=== PATIENT | male | born 1980 | race Caucasian/White ===

== ENCOUNTER 2019-01-02 03:18 | Inpatient (IN) | payer OTHER ==
[2019-01-02] VITALS (42 sets, daily range): BP systolic 100–191; BP diastolic 61–122; Ht 177.8 cm; Wt 113.2 kg
[~2019-01-02] VITALS: Ht 177.8 cm; Wt 113.2 kg
[2019-01-02] MEDS ORDERED: DILTIAZEM 24HR360 M4 PO (03:24)
[2019-01-02] MEDS ORDERED: POTASSIUM CHLO10 ME1 PO (03:25)
[2019-01-02] MEDS ORDERED: HYDROCHLOROTHIA25 MG PO (03:25)
[2019-01-02] MEDS ORDERED: CATAPRES0.1 MG PO (03:25)
--- NOTE | 2019-01-02 04:38 | NUR ---
PT BACK FROM CT. STATES PAIN IS STARTING TO RETURN. NITRO INCREASED TO 15MCG/MIN. DR LEMON MADE AWARE.
[2019-01-02 04:53] LABS: CALC OSMOLALITY 278 mosm/kg (275-300); CALCIUM 8.8 mg/dL (8.5-10.1); CARBON DIOXIDE 30.9 mmol/L (21.0-32.0); CHLORIDE - SERUM 99 mmol/L (98-107); CKMB 2.3 U/L (0.0-3.6); CREATINE KINASE 587 UL (21-232); CREATININE - SERUM 1.5 mg/dL (0.6-1.3); GLUCOSE 129 mg/dL (74-106); MAGNESIUM - SERUM 1.8 mg/dL (1.8-2.4); SODIUM 138 mmol/L (136-145); TROPONIN-I 0.049 ng/mL (0.000-0.060); UREA NITROGEN 15 mg/dL (7-18); eGFR NON AFRICAN AMERICAN 56 mL/min (90-120)
[2019-01-02 04:58] LABS: POTASSIUM - SERUM 2.6 mmol/L (3.5-5.1)
--- NOTE | 2019-01-02 07:24 | NUR ---
PT RECIEVED TO ROOM WITH ER STAFF, FAMILY IN WAITING ROOM ALERT AND ORIENTED O2 2L NC, RAC AND LFA PIV WITH NITRO AND NS 20KCL INFUSING, SEE ADMISSION ASSESSMENT FOR DETAILS, PAGED DR WATKINS TO NOTIFY OF BP AND PTS ARRIVAL WITH ORDERS RECIEVED FOR PROCARDIA
[2019-01-02 09:06] LABS: BASOPHILS 0.1 % (0-2); EOSINOPHILS 0.3 % (0-7); HEMATOCRIT 44.4 % (42.0-54.0); HEMOGLOBIN 15.8 g/dL (13.5-17.5); IMMATURE GRANULOCYTES 0.2 % (0-5); LYMPHOCYTES 11.3 % (15-50); MCH 30.7 pg (26.0-34.0); MCHC 35.6 g/dL (31.0-37.0); MCV 86.2 fL (80.0-100.0); MEAN PLATELET VOLUME 9.7 fL (7.4-10.4); MONOCYTES 7.1 % (2-11); PLATELET COUNT 326 10x3/uL (130-400); RBC 5.15 10x6/uL (4.20-6.10); RDW 12.9 % (11.5-14.5); WBC 11.9 10x3/uL (4.8-10.8)
[2019-01-02 09:21] LABS: ALBUMIN 3.4 g/dL (3.4-5.0); BILIRUBIN - TOTAL 0.74 mg/dL (0.2-1.3); CALCIUM 7.9 mg/dL (8.5-10.1); CARBON DIOXIDE 30.7 mmol/L (21.0-32.0); CREATININE - SERUM 1.5 mg/dL (0.6-1.3); LDL-HDL RATIO 2.4 ratio (1.5-3.5); MAGNESIUM - SERUM 1.7 mg/dL (1.8-2.4); PROTEIN - SERUM 6.3 g/dL (6.4-8.2)
[2019-01-02 09:29] LABS: CKMB 1.7 U/L (0.0-3.6); CREATINE KINASE 431 UL (21-232); POTASSIUM - SERUM 2.7 mmol/L (3.5-5.1); TROPONIN-I 0.033 ng/mL (0.000-0.060)
--- NOTE | 2019-01-02 09:46 | NUR ---
CALLED DR WATKINS TO CLARIFY NITRO ORDER AND UPDATE ON BP, ORDERS TO CHANGE MAX TO 100MCG, LOPRESSOR AND LISINOPRIL
--- NOTE | 2019-01-02 13:20 | NUR ---
PT AND SPOKEN TO BY DR SALAZAR, PT DENIES ALL QUESTIONS, SEEN BY DR WATKINS, [address] WARNER BP MED ORDERS AND SAID TO HOLD LISINOPRIL UNTIL NEXT DOSE AND OKAYED TO STOP NITRO. 1300 LUNCH TRAY SERVED
[2019-01-02 15:05] LABS: CKMB 1.4 U/L (0.0-3.6); CREATINE KINASE 351 UL (21-232); TROPONIN-I 0.045 ng/mL (0.000-0.060)
[2019-01-02 17:23] LABS: APPEARANCE CLEAR (CLEAR); BILIRUBIN NEGATIVE (NEGATIVE); COLOR YELLOW (YELLOW); GLUCOSE NEGATIVE (NEGATIVE); KETONE NEGATIVE (NEGATIVE); NITRITE NEGATIVE (NEGATIVE); PROTEIN TRACE mg/dL (NEGATIVE); UROBILINOGEN NORMAL (NORMAL)
--- NOTE | 2019-01-02 17:23 | NUR ---
PT DINNER TRAY SERVED, DENIES PAIN AND ALL NEEDS, VSS, AND FAMILY AT BEDSIDE FOR VISITATION, WILL CONTINUE TO MONITOR
[2019-01-02 17:26] LABS: UDS - AMPHET NEGATIVE QUAL (NEGATIVE); UDS - BARB NEGATIVE QUAL (NEGATIVE); UDS - BENZO NEGATIVE QUAL (NEGATIVE); UDS - COCAINE NEGATIVE QUAL (NEGATIVE); UDS - OPIATE POSITIVE QUAL (NEGATIVE); UDS - PCP NEGATIVE QUAL (NEGATIVE); UDS - THC NEGATIVE QUAL (NEGATIVE)
--- NOTE | 2019-01-02 19:00 | NUR ---
BEDSIDE SHIFT REPORT COMPLETED. PT AOX4, VSS, NO COMPLAINTS AT THIS TIME. UNLABORED RESPIRATIONS, LUNG SOUNDS CLEAR. S1S2 HEARD, PERIPHERAL PULSES PRESENT. BOWEL SOUNDS ACTIVE IN ALL QUADRANTS. PT REPOSITIONS SELF INDEPENDENTLY. DENIES NEEDS AT THIS TIME. CALL LIGHT AND BEDSIDE TABLE WITHIN PT REACH. CPOC.
--- NOTE | 2019-01-02 20:00 | NUR ---
FRESH WATER TO BEDSIDE, HS MEDS GIVEN. REPOSITIONS SELF INDEPENDENTLY. FAMILY AT BEDSIDE, UPDATE PROVIDED AND QUESTIONS ANSWERED. PT/FAMILY DENY ANY NEEDS AT THIS TIME. CALL LIGHT WITHIN PT REACH. CPOC.
--- NOTE | 2019-01-02 22:15 | NUR ---
UP TO BATHROOM WITH MINIMAL ASSISTANCE, STEADY GAIT. VSS.
--- NOTE | 2019-01-02 23:00 | NUR ---
REASSESSMENT COMPLETE, NO NEW CHANGES AT THIS TIME. PT REPOSITIONS SELF, VSS, NO C/O PAIN AT THIS TIME. CALL LIGHT WITHIN PT REACH. CPOC.
[2019-01-03] VITALS (14 sets, daily range): BP systolic 117–144; BP diastolic 74–102
--- NOTE | 2019-01-03 01:25 | NUR ---
PT C/O CHEST PAIN 08/08. REQUESTING MORPHINE. VSS, NO OTHER CHANGES AT THIS TIME. PRN MORPHINE GIVEN, DENIES FURTHER NEEDS. CALL LIGHT WITHIN PT REACH. CPOC.
--- NOTE | 2019-01-03 03:00 | NUR ---
REASSESSMENT COMPLETE, NO NEW CHANGES AT THIS TIME. VSS, NO C/O PAIN AT THIS TIME. DENIES NEEDS. CALL LIGHT AND BEDSIDE TABLE WITHIN PT REACH. CPOC.
--- NOTE | 2019-01-03 04:50 | NUR ---
PT RESTING QUIETLY WITH VSS, UNLABORED RESPIRATIONS. NO S/S OF PAIN OR ACUTE DISTRESS. CALL LIGHT WITHIN PT REACH. CPOC.
[2019-01-03 05:08] LABS: BASOPHILS 0.1 % (0-2); EOSINOPHILS 1.5 % (0-7); HEMATOCRIT 45.7 % (42.0-54.0); HEMOGLOBIN 15.6 g/dL (13.5-17.5); IMMATURE GRANULOCYTES 0.2 % (0-5); LYMPHOCYTES 23.4 % (15-50); MCH 30.4 pg (26.0-34.0); MCHC 34.1 g/dL (31.0-37.0); MEAN PLATELET VOLUME 10.2 fL (7.4-10.4); MONOCYTES 10.2 % (2-11); NEUTROPHILS 64.6 % (40-80); PLATELET COUNT 329 10x3/uL (130-400); RBC 5.13 10x6/uL (4.20-6.10); RDW 13.4 % (11.5-14.5); WBC 9.3 10x3/uL (4.8-10.8)
[2019-01-03 05:22] LABS: MCV 89.1 fL (80.0-100.0)
[2019-01-03 05:26] LABS: ANION GAP 9.2 mmol/L (8-16); CALCIUM 7.7 mg/dL (8.5-10.1); CARBON DIOXIDE 26.7 mmol/L (21.0-32.0); CREATININE - SERUM 1.3 mg/dL (0.6-1.3); POTASSIUM - SERUM 3.9 mmol/L (3.5-5.1)
--- NOTE | 2019-01-03 06:22 | NUR ---
CHG BATH AND TOTAL LINEN CHANGE COMPLETED. PT INDEPENDENTLY COMPLETES ORAL CARE. VSS, DENIES FURTHER NEEDS. CALL LIGHT WITHIN PT REACH. CPOC.
--- NOTE | 2019-01-03 07:24 | NUR ---
REPORT RECEVIED FROM THE OFF GOING RN. SEE ASSESSMENT IN THE PTS FLOW SHEET. VSS. PT DENIES PAIN. BREAKFAST TRAY PROVIDED FOR THE PT. PT REQUESTED A DR BE WITH MEAL. KITCHEN NOTIFIED. CALL LIGHT IN REACH. WILL CONT POC.
--- NOTE | 2019-01-03 09:24 | NUR ---
DR HIGGINS AT THE PTS BEDSIDE.
[2019-01-03] MEDS ORDERED: NICODERM C1 PATCH .1 TRANSDERM (11:55)
[2019-01-03] MEDS ORDERED: LISINOPRIL40 MG PO (11:55)
[2019-01-03] MEDS ORDERED: METOPROLOL TART50 MG PO (11:56)
--- NOTE | 2019-01-03 13:09 | NUR ---
DISCHARGE ORDERS RECEIVED. IV DC'D WITH THE CATHETER TIP INTACT.
--- NOTE | 2019-01-03 13:48 | NUR ---
DISCHARGE INSTRUCTIONS WENT OVER WITH THE PT. NO QUESTIONS AT THIS TIME. F/U APPOINTMENT MADE WITH PCP. ALL BELONGINGS ACCOUNTED FOR. PT LEFT WITH HIS FAMILY IN A STABLE CONDITION.
--- NOTE | 2019-01-03 15:37 | MORECARE ---
CASE MANAGEMENT DISCHARGE SUMMARY PATIENT: ELBA LENNON UNIT: [id number] ADM DATE: 01/02/19 AGE: 38 : [birth year] SEX: M ROOM/BED: D.[facility] AUTHOR: CAROLANN KELLY PHYSICIAN: REFERRING PHYSICIAN: JESSIE HIGGINS MD DATE OF SERVICE: 01/03/19 Discharge Plan Patient Name: ELBA LENNON [facility] [facility] 1980 Planned Disposition: Home Anticipated Discharge Date: Discharge Date: 01/03/2019 Expected LOS: Initial Reviewer: [email or web address] Initial Review Date: 01/03/2019 Generated: 01/03/19 4:36 pm DCPIA - Discharge Planning Initial Assessment Updated by [email or web address]: Lisa Romano on 01/03/19 3:36 pm * How many steps to enter\exit or inside your home? * PCP DR. Torre * Pharmacy [facility] * Preadmission Environment Home with Family * ADLs Independent * List name and contact numbers for known caregivers / representatives who currently or will assist patient after discharge: MATEUS LENNON -SPOUSE- [phone] * Verbal permission to speak to the caregivers and representatives has been obtained from the patient. No * Community resources currently utilized None * Additional services required to return to the preadmission environment? No * Can the patient safely return to the preadmission environment? Yes * Has this patient been hospitalized within the prior 30 days at any hospital? No Patient Name: ELBA LENNON Page [id number] at 1537 All edits/amendments must be made on the electronic document DICTATION DATE: 01/03/19 1536 CUSTOMER CONTACT SALES ASSOCIATE: JILLIAN 01/03/19 1536 RPT#: [id number] DC DATE:01/03/19 STATUS: DIS IN [facility] [address] [place] [address] END OF REPORT
--- NOTE | 2019-01-03 15:48 | MORECARE ---
CASE MANAGEMENT DISCHARGE SUMMARY PATIENT: ELBA LENNON UNIT: [id number] ADM DATE: 01/02/19 AGE: 38 : [birth year] SEX: M ROOM/BED: D.CV03 AUTHOR: ROBINDOC PHYSICIAN: REFERRING PHYSICIAN: JESSIE HIGGINS MD DATE OF SERVICE: 01/03/19 Discharge Plan Patient Name: ELBA LENNON Facility: [facility]:[place] : 1980 Planned Disposition: Home Anticipated Discharge Date: Discharge Date: 01/03/2019 Expected LOS: Initial Reviewer: [email or web address] Initial Review Date: 01/03/2019 Generated: 01/03/19 4:47 pm Comments DCP- Discharge Planning Updated by [email or web address]: Lisa Romano on 01/03/19 2:[address] Patient Name: ELBA LENNON Admission Status: ER Accout number: [id number] Admission Date: 01-02-2019 : 1980 Admission Diagnosis: Attending: JESSIE HIGGINS Current LOS: 1 Anticipated DC Date: Planned Disposition: Home Primary Insurance: [employer] PPO Discharge Planning Comments: CM met with patient at bedside after explaining CM role and obtaining verbal consent. Patient lives at home with his [place]a where he is independent with his care and plans to return there upon discharge. Patient feels this would be a safe discharge. CM discussed availability / needs of home health and medical equipment. Patient denies any discharge needs at this time. Patient states he will have his family drive him home upon discharge. CM will continue to follow and assist as needed with discharge planning / needs. Material Clerk: Lisa Romano DCPIA - Discharge Planning Initial Assessment Updated by [id number]: Lisa Romano on 01/03/19 3:36 pm * How many steps to enter\exit or inside your home? * PCP DR. Torre * Pharmacy [facility] * Preadmission Environment Home with Family * ADLs Independent * List name and contact numbers for known caregivers / representatives who currently or will assist patient after discharge: ROULA LENNON -SPOUSE- [phone] * Verbal permission to speak to the caregivers and representatives has been obtained from the patient. No * Community resources currently utilized None * Additional services required to return to the preadmission environment? No * Can the patient safely return to the preadmission environment? Yes * Has this patient been hospitalized within the prior 30 days at any hospital? No Last DP export: 01/03/19 2:37 p Patient Name: ELBA LENNON Page [id number] at 1548 All edits/amendments must be made on the electronic document DICTATION DATE: 01/03/191546 ELECTROMEDICAL EQUIPMENT TECHNICIAN: JILLIAN 01/03/191546 RPT#: [id number] DC DATE:01/03/19 STATUS: DIS IN [facility] [address] [place] [address] END OF REPORT
--- NOTE | 2019-01-04 14:08 | CN ---
PATIENT NAME:ELBA LENNON MEDICAL RECORD: [id number] : 84 LOCATION:[facility]03 ADMIT DATE: 01/02/19 ACCOUNT: [id number] CONSULTING PHYSICIAN: CARMEN WATKINS MD REFERRING PHYSICIAN: JESSIE HIGGINS MD DATE OF CONSULTATION: 01/02/2019 DIAGNOSES: 1. Hypertensive crisis. 2. Essential hypertension. 3. Ascending aortic aneurysm. HISTORY OF PRESENT ILLNESS: This is a gentleman with a past history of hypertension who has been noncompliant with medications, presents with chest pain and headache, found to be markedly hypertensive with systolic blood pressures in the 200-220 range. He was placed on IV nitro and was given Procardia-XL with a systolic blood pressure 160 range. He is asymptomatic now. His EKG is with no acute ST-T abnormalities. CT of the chest reveals an ascending aortic aneurysm, it just over 4.0, but no dissection or acute findings. PHYSICAL EXAMINATION: CONSTITUTIONAL/GENERAL APPEARANCE: Well nourished, well developed, appears stated age. EYES: Lids and conjunctivae noninjected. No discharge. No pallor. ENT: Lips within normal limit. No cyanosis. No pallor. NECK: Carotid arteries, bilateral normal upstroke. No bruits. No thrills. No jugular venous pressure or distention. CERVICAL LYMPH NODES: Nontender. Nonenlarged. THYROID: Not enlarged. No nodules. CARDIOVASCULAR: Precordial exam, nondisplaced. No heaves or pericardial thrills. Rate and rhythm, regular. Heart sounds, normal S1, normal S2. No S3, no gallop, no rub. Systolic murmur, not heard. Diastolic murmur, not heard. RESPIRATORY: Respiratory effort, unlabored. Normal curvature. No thoracic deformity. No chest wall tenderness. Percussion, resonant. Auscultation, clear. No wheezes, no rales, no rhonchi. ABDOMEN: Soft, nondistended, nontender. No abdominal pain, no vomiting and normal appetite. MUSCULOSKELETAL: No joint tenderness, normal gait, normal tone. SKIN: Warm and dry. OVERALL IMPRESSION: Out of control, essential hypertension with hypertensive crisis. At this time, he has been given clonidine, metoprolol, Procardia, and lisinopril. He remains on a nitro drip. We will try to wean this as his blood pressure comes down from these oral agents as well, can use p.r.n. clonidine. TRANSINT:[id number] Voice Confirmation ID: [id number] DOCUMENT ID: [id number] CONSULT REPORT [id number] ELBA LENNON JEFFREY MD at 1408 CC: [id number] DICTATION DATE: 01/02/19 1035 OCTAVE BOARD RACKER: 01/02/19 1048 DIS IN 01/03/19 [place] [id number] [place] [address]
--- NOTE | 2019-01-04 14:08 | EC ---
PATIENT:ELBA LENNON DATE OF SERVICE: 01/02/19 SEX: M MEDICAL RECORD: [id number] DATE OF : [birth year] LOCATION:[place] [address] AGE OF PATIENT: 38 ADMISSION DATE: 01/02/19 REFERRING PHYSICIAN: INTERPRETING PHYSICIAN: CARMEN PAYNE MD ECHOCARDIOGRAM REPORT ECHO CHARGES 4 ECHO COMPLETE Date: 01/02/19 CLINICAL DIAGNOSIS: HTN CRISIS/ASCENDING AORTIC ANEURYSM ECHOCARDIOGRAPHIC MEASUREMENTS (adult normal given) AC root (d.<3.7cm) 3.6 cm LV Septum d (<1.2 cm> 1.4 cm Valve Excursion 2.4 cm LV Septum (systole) 2.0 cm Left Atria (s.<4.0cm> 4.2 cm LVPW d(<1.2cm) 1.4 cm RV (d.<2.3cm) 2.3 cm LVPW (sytole) 2.0 cm LV diastole(<5.6CM) 5.3 cm MV E-F(>70mm/sec) cm LV systole 2.8 cm LVOT Diameter 2.0 cm MV exc.(>10mm) cm Est.ejection fraction (50-75%) % DOPPLER: LVIT cm/sec A 69.0 cm/sec E 51.0 cm/sec LA cm/sec RVSP 28.0 mmHg LVOT 78.0 cm/sec AOP1/2T m/s Asc. Ao 137 cm/sec RVOT 75.0 cm/sec RA cm/sec PA 97.0 cm/sec AV Gradient Peak 7.5 mmHg AV Mean 3.1 mmHg AV Area 1.7 cm MV Gradient Peak 3.8 mmHg MV Mean 1.3 mmHg MV Area cm COMMENTS: ASCENDING AORTA: 3.3 cm Marketing Co Op: 1 ISAURA GERA Cyber Operator: 1 Dr. Payne TAPE# PACS Pericardial Effusion N DATE OF SERVICE: FINDINGS: 1. Left ventricular chamber size is within normal limits. Left ventricular systolic function is normal. Overall ejection fraction estimated at 60%. 2. Left atrium is enlarged at 4.2 cm. Right atrium and right ventricular chamber sizes are as well mildly dilated. 3. Valvular structures have normal structure and motion. 4. Doppler interrogation reveals no significant valvular insufficiency or stenosis and pulmonary systolic pressure is normal, estimated 28 mmHg. ECHOCARDIOGRAM REPORT [id number] ELBA LENNON 5. No evidence of pericardial effusion or left ventricular thrombus. TRANSINT:[id number] Voice Confirmation ID: [id number] DOCUMENT ID: [id number] CARMEN PAYNE MD at 1408 CC: [id number] DICTATION DATE: 01/02/19 1525 [employer]IVING SCHOOL INSTRUCTOR: 01/03/19 0033 DIS IN 01/03/19 [place] [id number] [place] [id number]
[2019-01-05 09:13] LABS: ALDOSTERONE 13.4 ng/dL (0.0-30.0)
[2019-01-05 10:11] LABS: RENIN ACTIVITY - PLASMA 12.934 ng/mL/hr (0.167-5.380)
== END 2019-01-03 14:02 | disposition home or self-care (01) | DRG 305 ==
LOC: D.ER 03:18 → D.CVICU 06:19
PROVIDERS: Family Medicine; ADMIT Internal Medicine Nephrology; ATTEND Internal Medicine Nephrology
DX: I16.9 Hypertensive crisis, unspecified (principal); N17.9 Acute kidney failure, unspecified; F17.203 Nicotine dependence unspecified, with withdrawal; I71.4 Abdominal aortic aneurysm, without rupture; E87.6 Hypokalemia; E78.5 Hyperlipidemia, unspecified; K25.9 Gastric ulcer, unspecified as acute or chronic, without hemorrhage or perforation; K57.90 Diverticulosis of intestine, part unspecified, without perforation or abscess without bleeding